=== PATIENT | male | born 1960 | race Caucasian/White ===

== ENCOUNTER → 2017-04-30 | Outpatient (CLI) | payer BC ==
--- NOTE | 2017-04-30 17:27 | PCVCIMAG ---
APPROVED REPORT Exam: Stress Echocardiogram Indication: Chest pain Stress Nurse: Erika Raya RN Status: routine HR: 57 bpm Rhythm: NSR, Bradycardia Medical History Cardiac Risk Factors: FHX of CAD Procedure The patient underwent an Exercise Stress Test using the Sukumar Protocol. Blood pressure, heart rate, and EKG were monitored. An Echocardiogram was performed by fire control technician g in four stages in quad fashion. At peak stress, four selected images were obtained and placed side by side with resting images for comparison. Stress Test Details Stress Test: Exercise stress testing was performed using a Sukumar protocol. HR Resting HR: 57 bpmMax Heart Rate (APMHR): 165 bpm Max HR Achieved: 153 bpmTarget HR (85% APMHR): 140 bpm % of APMHR: 92 Recovery HR: 85 bpm HR response to stress: Normal HR response to stress BP Resting BP: 112/80 mmHg Max BP: 158/80 mmHg Recovery BP: 132/78 mmHg ECG Resting ECG: Sinus Bradycardia Stress ECG: Sinus Rhythm with PVCs Arrhythmia: VPC's at peak exertion Recovery ECG: Sinus Rhythm Clinical Reason for Termination: Maximal effort Exercise duration: 10 min 36 sec Exercise capacity: 13.4 METs Overall Exercise Capacity for Age: Normal Pre-Stress Echo The resting Echocardiogram showed normal left ventricular contractility with an estimated Ejection Fraction of about >55%. Normal wall motion in all segments on baseline images. Post-Stress Echo The stress Echocardiogram showed normal left ventricular contractility with an estimated Ejection Fraction of about 60-65%. Normal augmentation of wall motion in all segments on post stress images. Clinical Equivocal ECG evidence for ischemia. Conclusion Clinical Response: Non-ischemic Exercise Capacity: Average Stress ECG Response: Equivocal Stress Echo Images: Non-ischemic
== END | disposition home or self-care (01) ==
LOC: PCVCIMAG 13:58
PROVIDERS: ATTEND Internal Medicine Cardiovascular Disease
DX: R07.89 Other chest pain (principal); R00.1 Bradycardia, unspecified; Z82.49 Family history of ischemic heart disease and other diseases of the circulatory system
CPT/HCPCS: 93325; 93351